=== PATIENT | male | born 1995 | race Asian ===

== ENCOUNTER 2017-01-08 19:36 | Emergency (ER) | payer SELFPAY ==
[~2017-01-08] VITALS: Ht 175.3 cm; Wt 97.5 kg
[2017-01-08] MEDS ORDERED: TETRACAINE 0.5% OPHTH SOLN 4 ML BTL (SINGLE DOSE ONLY) OP ONE (20:15)
[2017-01-08] MEDS ORDERED: BSS 15 ML IR ONE (20:15)
[2017-01-08] MEDS ORDERED: FLUORESCEIN (FLUOR-I-STRIPS) 1 MG STRP OU ONE (20:15)
[2017-01-08] MEDS ORDERED: RX-GENTAMICIN 0.3% OP OINT 3.5 GM TUBE OP STA (21:40)
--- NOTE | 2017-01-08 21:42 | ED EENT ---
History of Present Illness General Chief Complaint: Eye Problems Stated Complaint: EYE INFECTION Nursing Triage Note: Ambulatory to ED with reports of left eye discomfort x1 week. Patient has attempted eye drops, but has not had any relief. Denies any possible injury or foreign body. Source: patient Exam Limitations: no limitations History of Present Illness Time seen by provider: 20:05 Initial Comments This 21-year-old gentleman presents to the emergency room with complaints of left eye discomfort for about one week. Patient attempted some "red eye" drops [id number] but they did not help much. The sensation is more of a discomfort than and itching. He denies any other symptoms such as cough, runny nose, itchy nose, sneezing, etc. He denies any known injury or foreign body. Allergies and Home Medications Allergies Coded Allergies: No Known Drug Allergies (Unverified , 01/08/17) Home Medications No Active Prescriptions or Reported Meds Review of Systems Constitutional: no symptoms reported Eyes: See HPI Ears: No Symptoms Reported Nose: no symptoms reported Mouth: no symptoms reported Throat: no symptoms reported Respiratory: no symptoms reported Skin: no symptoms reported Immunological/Allergic: no symptoms reported Past Hufzhei-Isxysy-Bqnxvp Hx Patient Social History Alcohol Use: Denies Use Recreational Drug Use: No Smoking Status: Never a Smoker 2nd Hand Smoke Exposure: No Recent Foreign Travel: No Contact w/Someone Who Travel: No Recent Infectious Disease Expo: No Recent Hopitalizations: No Immunizations Up To Date Tetanus Booster (TDap): Less than 5yrs Seasonal Allergies Seasonal Allergies: Yes Surgeries HX Surgeries: Yes Surgeries: Orthopedic Respiratory Hx Respiratory Disorders: No Cardiovascular Hx Cardiac Disorders: No Neurological Hx Neurological Disorders: No Reproductive System Hx Reproductive Disorders: No Genitourinary Hx Genitourinary Disorders: No Gastrointestinal Hx Gastrointestinal Disorders: No Musculoskeletal Hx Musculoskeletal Disorders: No Endocrine Hx Endocrine Disorders: No Cancer Hx Cancer: No Psychosocial Hx Psychiatric Problems: No Integumentary HX Skin/Integumentary Disorder: No Physical Exam Vital Signs Vital Sign - Last 12Hours 01/08/17 19:42 Temp 98.3 Pulse 69 Resp 18 B/P (MAP) 154/90 Pulse Ox 98 O2 Delivery Room Air General Appearance: WD/WN, no apparent distress Eyes: right eye normal inspection, left eye conjunctival inflammation, left eye lid inflammation, bilateral eye PERRL, bilateral eye EOMI Ears: bilateral ear auricle normal, bilateral ear canal normal, bilateral ear TM normal Nose: normal inspection Mouth/Throat: normal mouth inspection, pharynx normal Neck: normal inspection Respiratory: normal breath sounds, no respiratory distress Neurologic/Psychiatric: improvement rn II-XII nml as tested, no motor/sensory deficits, alert, normal mood/affect, oriented x 3 Skin: normal color, warm/dry Additional Procedures : Progress Patient's left eye was anesthetized with tetracaine drops. Fluorescein exam was then performed. No corneal abrasions or foreign bodies were identified. I was irrigated with balance saline. Genoptic ointment was then applied and dispensed with the patient. Progress/Results/Core Measures Results/Orders My Orders Medications Given in ED Vital Signs/I&O Blood Pressure Mean: 111 Departure Impression Impression: Primary Impression: Conjunctivitis Qualified Codes: H10.32 - Unspecified acute conjunctivitis, left eye Disposition: HOME, SELF-CARE Condition: Improved Departure-Patient Inst. Decision time for Depature: 21:30 Referrals: NO,LOCAL PHYSICIAN (PCP) Primary Care Physician Patient Instructions: Conjunctivitis ([place]keye) (DC) Add. Discharge Instructions: Place the ointment on the lower part of your left eyelid 3 times a day for at least 5 days. [facility] or an eye doctor if not improving by Wednesday. Return to the emergency room if symptoms worsen. All discharge instructions reviewed with patient and/or family. Voiced understanding. Scripts No Active Prescriptions or Reported Meds THALIA MCDERMOTT MD Jan 08, 2017 21:42
[2017-01-08 21:49] VITALS: BP 122/75
== END 2017-01-08 21:49 | disposition home or self-care (01) ==
LOC: ER 19:39
DX: H10.9 Unspecified conjunctivitis (principal)
CPT/HCPCS: 99283